=== PATIENT | female | born 1950 | race Hispanic/Latino ===

== ENCOUNTER → 2021-04-22 | Outpatient (CLI) | payer MEDICARE ==
[~2021-04-22] MED LIST: ACULAR5 ML; GLIMEPIRIDE2 MG PO; LEVOTHYROXINE50 MCG PO; METFORMIN HCL500 MG PO; SYSTANE BALANCE10 ML
== END ==
LOC: CARD 14:42
PROVIDERS: ATTEND Family Medicine
DX: I73.9 Peripheral vascular disease, unspecified (principal); I77.1 Stricture of artery
CPT/HCPCS: 93925